=== PATIENT | male | born 1975 | race Caucasian/White ===

== ENCOUNTER 2022-12-19 10:10 | Day surgery (SDC) | payer BC ==
[2022-12-09 10:39] VITALS: BP 135/80
[~2022-12-19] VITALS: Ht 180.3 cm; Wt 102.0 kg
--- NOTE | ~2022-12-19 | OR ---
[facility] [address], [place] [address] Draft DATE OF OPERATION: 12/19/2022 SURGEON: Gilberto Khan MD PREOPERATIVE DIAGNOSIS: 1. Chronic nasal and sinus polyps. 2. Chronic pansinusitis. 3. Deviated nasal septum. 4. Nasal obstruction. 5. Suspected obstructive sleep apnea. POSTOPERATIVE DIAGNOSES: 1. Chronic nasal and sinus polyps. 2. Chronic pansinusitis. 3. Deviated nasal septum. 4. Nasal obstruction. 5. Suspected obstructive sleep apnea. PROCEDURES: 1. Bilateral endoscopic frontal ethmoidectomy, 04760-52. 2. Nasal septoplasty, 34008. 3. Bilateral sphenoidotomies, 94903-16. 4. Bilateral maxillary antrostomies with removal of polyps soft tissue . INDICATIONS: This 47-year-old gentleman has had chronic nasal obstruction for many years. It has gotten to the point where it is impossible to breathe through his nose, also accompanied with hyposmia or anosmia and chronic sinus headaches. A CT scan demonstrated pansinusitis with polyps severely fractured and deviated septum. On examination, the patient cannot breathe out of his left side at all. On the right side, he had polyps and CT scan demonstrated, likewise basically opacification of left maxillary sinus with evidence of odontogenic sinusitis with chronic cyst formation at the apex of the tooth and the patient was notified to get that repaired, meanwhile the surgery was performed to give the patient nasal airway, open all the sinuses, clear the infection and help him to breathe better at night. Medical treatment was absolutely ineffective. DESCRIPTION OF PROCEDURE: The patient was placed in a supine position, had an orotracheal intubation, placed under general anesthesia. The right side was approached first because the left side was collapsed. Injecting in the lateral wall with a few mL of 1% lidocaine with 1:200,000 PATIENT NAME: RICO CALI OPERATIVE REPORT DATE OF : 77 REPORT #: [id number] PHYSICIAN: GILBERTO KHAN MD PCP: NO PRIMARY CARE PHYSICIAN REPORT IS CONFIDENTIAL AND NOT TO BE RELEASED WITHOUT AUTHORIZATION [facility] [address], [place] [address] Draft epinephrine. The patient then had the anterior inferior portion of middle turbinate trimmed away, which was very grossly polypoid with polyps in the middle meatus as well. The patient had severe inflammation accompanying that lots of oozing throughout the procedure, which slowed down the operation. Finally, the maxillary ostium was found after removing the polyps. The backbiting forceps and the Thru-Cut ethmoid punch were used to remove that medial maxillary wall, and then polyps removed with the forceps and with the curved blade of the microdebrider. A complete ethmoidectomy was then done removing the inner sinus septations and polyps were re-branched. A transostial sphenoidotomy was performed. Large polyp removed out of there and the Kerrison forceps used to remove that rostrum up to the ceiling. Changing to a 70 degree scope, that plane was used for the base of skull to come forward and up in the frontal recess, likewise the polyps were stuck to the frontal sinus. Those were removed with the microdebrider with a curved blade and various frontal sinus instruments. Some NasoPore was placed on the left side with some mupirocin ointment. The septum then had to be repaired. A flap was made and developed on the right side. The maxillary crest was essentially a separate entity from the rest of the septum being and then bridged by mucosa and cartilage. After lifting up the mucoperiosteal and mucoperichondrium, bone was from cartilage up superiorly to help push that septum into the midline. Cartilage then made a bulge going into the left side, and after that from the bone more inferiorly just a little bit of bilateral elevation just of the inferior of the caudal aspect of the septum was done, trimming that with a 15 blade, so that it would come to the midline. The maxillary crest, which was fractured or at least deviated somewhat, was removed with the osteotome and mallet. These various maneuvers allowed all of the structures then come to the midline and the flaps were based down with 4-0 chromic and the 4-0 gut and the anterior incision closed with 4-0 chromic. This opened up the airway on the left side and the first time that was inspected with the scope, the were coming out of the middle meatus. The anterior portion of middle turbinate was also polypoid that was trimmed away a little bit. The polyps removed with microdebrider. The uncinate process removed. The maxillary ostium widened and polyps removed again out of the maxillary sinus as much as possible. No pus came out of the maxillary sinus. Then, the ethmoids were dissected, again the transostial sphenoidotomy performed. Then, the base of skull was cleaned of its polyps and the inner sinus septations. Frontal sinus opened. The frontal sinus Kerrison forceps used to remove the beak of the frontal sinus and opening up widely. More NasoPore placed on that side, then the patient before going to the recovery room started oozing out of the right side, so Gel-Foam with some mupirocin or bacitracin ointment was placed into the right side a little deeper to help with hemostasis. Estimated blood loss was between 500-600 mL. There were no complications. The patient did well. PATIENT NAME: RICO CALI OPERATIVE REPORT DATE OF : 77 REPORT #: [id number] PHYSICIAN: GILBERTO KHAN MD PCP: NO PRIMARY CARE PHYSICIAN REPORT IS CONFIDENTIAL AND NOT TO BE RELEASED WITHOUT AUTHORIZATION [address] [place], [place] [address] Draft MD JANET Ramirez/DENNYL /[id number] Copies: ~ PATIENT NAME: RICO CALI OPERATIVE REPORT DATE OF : 77 REPORT #: [id number] PHYSICIAN: GILBERTO KHAN MD PCP: NO PRIMARY CARE PHYSICIAN REPORT IS CONFIDENTIAL AND NOT TO BE RELEASED WITHOUT AUTHORIZATION
[~2022-12-19 10:10] MED LIST: ZYRTEC10 MG PO
[2022-12-19 10:38] VITALS: BP 132/90
[2022-12-19] MEDS ORDERED: AMOX TR-K CLV1 EAC1 PO (10:42)
--- NOTE | 2022-12-19 10:58 | NUR ---
PT'S BLACK RING PLACED IN A SPECIMEN CUP WITH PT SALMON GILLNET VESSEL OPERATOR IT. PLACED INTO THE PT BELONGINGS BAG.
--- NOTE | 2022-12-19 15:56 | NUR ---
12/19/22 1556 Deyanira Gama 1541- PT ARRIVES TO PACU REACTIVE TO STIMULI. RESP EVEN AND UNLABORED. OXYGEN SAT HIGH 90'S TO 100% ON 6L VIA MASK. PT'S GAUZE UNDER HIS NOSE IS SOAKED IN BLOOD. DR. KHAN IS AWARE AND RECENTLY PLACED PACKING IN THE PT'S NOSE PRIOR TO ARRIVAL IN PACU. GAUZE DRESSING CHANGED. 1547- DR. KHAN AT THE BEDSIDE TO TALK WITH THE PT. 1548- OXYGEN TITRATED OFF OXYGEN SAT HAS BEEN IN THE HIGH 90'S TO 100% ON 6L. PT REPORTS NO PAIN OR NAUSEA. GAUZE DRESSING TO NOSE HAS NO DRAINAGE NOTED. 1551- PT'S PILLOW CASE CHANGED OUT THERE IS BLOOD ON IT. 1554- PT ABLE TO COUGH AND DEEP BREATHE. OXYGEN SAT MID 90'S ON RA. SMALL AMOUNT OF DRAINAGE NOTED ON THE GAUZE UNDER PT'S RIGHT NARE.
[2022-12-19 16:12] VITALS: BP 132/81
--- NOTE | 2022-12-19 16:18 | NUR ---
PT RETURNED TO DAY SURGERY ROOM #6 ALERT AND ORIENTED. PT SIPPING ON ICE WATER TOLERATING WELL. PT DENIES WANTING ANYTHING TO EAT AT THIS TIME. DENIES PAIN OR NAUSEA. RESP EVEN AND UNLABORED. CONTINUOUS PULSE OX LEFT IN PLACE. BED IN THE LOWEST POSITION, BED RAIL UP X1, CALL LIGHT PROVIDED.
--- NOTE | 2022-12-19 16:24 | NUR ---
PT'S SIGNIFICANT OTHER, LINDA, CONTACTED AND IS ON HER WAY TO THE HOSPITAL. SHE IS THANKFUL FOR THE UPDATE. PT NOTIFIED WELL.
--- NOTE | 2022-12-19 16:32 | NUR ---
PT'S PAIN MEDICATION CALLED IN TO [facility].
[2022-12-19] MEDS ORDERED: BACTRIM DS TAB1 EACH PO (16:46)
[2022-12-19] MEDS ORDERED: TRAMADOL HCL50 MG PO (16:47)
--- NOTE | 2022-12-19 16:48 | NUR ---
1641- ATTEMPTED TO CALL DR. KHAN REGARDING THE PT'S ORDERED ABX. MESSAGE LEFT. 1645- PT'S GAUZE DRESSING CHANGED DUE TO DRAINAGE. SMALL AMOUNT OF DRAINAGE NOTED. THE DRAINAGE IS GETTING CHANNEL DEVELOPMENT DIRECTOR RED AND LESS WITH EACH DRESSING CHANGE. PT PROVIDED CRACKERS AND JELL-O. CONTINUES SIPPING ON ICE WATER. PT REPORTS NO PAIN OR NAUSEA. PT HAS NO FURTHER REQUESTS AT THIS TIME.
--- NOTE | 2022-12-19 17:04 | NUR ---
CLARIFIED PT'S ABX WITH DR. KHAN. DR. KHAN WANTS PT TO FINISH HIS AUGMENTIN AND THEN START HIS BACTRIM AFTER THIS.
--- NOTE | 2022-12-19 17:14 | NUR ---
PT REPORTING NO PAIN OR NAUSEA. PT AMBULATED TO THE RESTROOM WITH HIS SIGNIFICANT OTHER. TOLERATED WELL.
[2022-12-19 17:22] VITALS: BP 127/80
--- NOTE | 2022-12-19 17:24 | NUR ---
PT DRESSING HIMSELF WITH HIS . TOLERATING WELL.
--- NOTE | 2022-12-19 17:30 | NUR ---
DR. KHAN CONTACTED IN REGARDS TO THE AMOUNT OF DRESSING CHANGES THAT HAVE BEEN DONE SINCE SURGERY. ANOTHER DRESSING CHANGE COMPLETED AFTER PT DRESSED HIMSELF. DR. KHAN STATES THIS AMOUNT OF DRESSING CHANGES ARE OKAY AND THAT FREQUENT DRESSING CHANGES THE FIRST NIGHT ARE COMMON. PT AND PT'S SIGNFICANT OTHER NOTIFIED AND EDUCATED TO CALL OR FOLLOW UP FOR CONCERNS. BOTH PARTIES STATE UNDERSTANDING.
--- NOTE | 2022-12-19 17:40 | NUR ---
DC INSTRUCTIONS PROVIDED TO BOTH PT AND PT'S SIGNFICANT OTHER. ALL QUESTIONS ANSWERED. PT ALERT AND ORIENTED ABLE TO AMBULATE TO THE WHEELCHAIR.
--- NOTE | 2022-12-20 11:32 | NUR ---
CALLED PT BACK HE CALLED ASKING IF HE WAS ALLOWED TO USE AFRIN. DR. KHAN REPORTS THE PT IS NOT TO USE AFRIN, ONLY USE NASAL RINSES AND THE DEXAMETHASONE. PT NOTIFIED OF THIS AND AGREEABLE. PT REPORTS HIS BLEEDING HAS DECREASED SINCE YESTERDAY AND HE IS DOING WELL. EDUCATED PT TO CALL DR. KHAN'S OFFICE OR TO BE SEEN BY A DOCTOR IF HE HAS ANY CONCERNS OR INCREASED BLEEDING. PT STATES UNDERSTANDING. PT THANKFUL FOR THE CALL BACK. PT PHONE NUMBER [phone].
--- NOTE | 2022-12-24 15:22 | PATH ---
[facility] [address] [place], [place] [address] Signed SPECIMEN(S): A RIGHT SINUS CONTENTS SPECIMEN(S): B LEFT SINUS CONTENTS SPECIMEN SOURCE: A. RIGHT SINUS CONTENTS B. LEFT SINUS CONTENTS CLINICAL HISTORY: Chronis sinusitis, DNS, polyps (nasal). FESS, septo. FINAL PATHOLOGIC DIAGNOSIS: A. Right sinus contents: - Benign respiratory-type mucosa with bone and cartilage and focal mild chronic inflammation. - Focal mild to moderate stromal eosinophils. B. Left sinus contents: - Benign respiratory-type mucosa with bone and cartilage and focal mild chronic inflammation. - Focal mild to moderate stromal eosinophils. JVR:[facility]:C2NR MICROSCOPIC EXAMINATION: Histologic sections of all submitted blocks are examined by light microscopy. These findings, together with the gross examination, support the pathologic diagnosis. GROSS DESCRIPTION: A. The specimen, labeled and designated "Fabiola, Obed, " and designated on the requisition "right sinus contents," is received in formalin and consists of a 6.5 x 4.3 x 0.7 cm aggregate of pink-red soft tissue with admixed bone fragments. Shipping And Receiving Operator sections are submitted in cassette A1 and placed into Decal Stat prior to processing. B. The specimen, labeled and designated "Fabiola, Obed, " and designated on the requisition "left sinus contents," is received in formalin and consists of a 4.5 x 3.6 x 1.0 cm aggregate of pink-red soft tissue fragments with admixed bone fragments. Shipping And Receiving Operator sections are submitted in cassette B1 and placed into Decal Stat prior to processing. FB (under the direct supervision of a pathologist) The Gross Description was prepared using a voice recognition system. The report was reviewed for accuracy; however, sound-alike word errors, addition and/or deletions may occur. If there is any PATIENT NAME: RICO CALI PATHOLOGY DATE OF : 77 REPORT #: [id number] PHYSICIAN: TAVON WRIGHT PCP: NO PRIMARY CARE PHYSICIAN REPORT IS CONFIDENTIAL AND NOT TO BE RELEASED WITHOUT AUTHORIZATION [facility] [address] [place], [place] [address] Signed question about this report, please contact Client Services. PERFORMING LABORATORY: The technical component was performed by [facility], [address] [place] [address] (CLIA# [id number]). Professional interpretation was performed by [facility] - [facility], [address] [place] [phone] (CLIA#: [id number]). Diagnostician: Lonnie Rasheed MD Pathologist Electronically Signed 12/24/2022 Copies: ~ PATIENT NAME: RICO CALI PATHOLOGY DATE OF : 77 REPORT #: [id number] PHYSICIAN: [facility] PCP: NO PRIMARY CARE PHYSICIAN REPORT IS CONFIDENTIAL AND NOT TO BE RELEASED WITHOUT AUTHORIZATION
== END 2022-12-19 17:40 | disposition home or self-care (01) ==
LOC: DS 10:10
PROVIDERS: ATTEND Otolaryngology
DX: J34.2 Deviated nasal septum (principal); J33.8 Other polyp of sinus; J32.4 Chronic pansinusitis; J34.89 Other specified disorders of nose and nasal sinuses; J32.9 Chronic sinusitis, unspecified
CPT/HCPCS: 00160; J0131; J1100; J2250; J2405; J2704; J3010; J7121